=== PATIENT | male | born 1980 | race Asian ===

== ENCOUNTER 2018-06-21 14:11 | Emergency (ER) | payer MEDICAID ==
[~2018-06-21] VITALS: Ht 182.9 cm; Wt 114.3 kg
--- NOTE | 2018-06-21 14:16 | NUR ---
ESTELA FROM THE STREETS C/O N/V S/P SMOKING MARIJUANA, TO ER BED 11, HOOKED TO MONITOR, AWAITING MD DAVIS
--- NOTE | 2018-06-21 14:16 | NUR ---
Desi smith in [facility] - 06/21/18 at 1432 by SHANEL ESTELA FROM THE STREETS C/O N/V S/P SMOKING MARIJUANA
--- NOTE | 2018-06-21 14:44 | NUR ---
DR HOU AT BEDSIDE
[2018-06-21] MEDS ORDERED: IV NS 0.9% 1,000 ML BAG IV ONE ×2 (15:00→17:00)
[2018-06-21] MEDS ORDERED: ONDANSETRON HCL/PF - ER 4 MG/2 ML VIAL IV ONE (15:00)
[2018-06-21] MEDS ORDERED: ONDANSETRON HCL/PF 4 MG/2 ML VIAL ONE (15:08)
[2018-06-21 15:47] LABS: BASOPHILS % (AUTO) 0.1 % (0.0-2.0); EOSINOPHILS % (AUTO) 0.3 % (0.0-6.0); HEMATOCRIT 46 % (39-51); HEMOGLOBIN 15.1 g/dL (13.5-17.5); LYMPHOCYTES # (AUTO) 1.7 /CMM (0.8-4.8); LYMPHOCYTES % (AUTO) 7.8 % (20.0-44.0); MEAN CORPUSCULAR HGB CONC 33 g/dl (31.0-36.0); MEAN CORPUSCULAR VOLUME 80 fL (80-96); MONOCYTES # (AUTO) 1.2 /CMM (0.1-1.30); MONOCYTES % (AUTO) 5.8 % (2.0-12.0); NEUTROPHILS # (AUTO) 18.3 /CMM (1.8-8.9); PLATELET COUNT (AUTO) 262 /CMM (150-450); RED BLOOD CELL COUNT(AUTO) 5.72 MIL/uL (4.5-6.0); WHITE BLOOD COUNT (AUTO) 21.2 K/uL (4.3-11.0)
[2018-06-21 15:56] LABS: CALCIUM, SERUM 8.8 mg/dL (8.5-10.1); CREATININE 1.3 mg/dL (0.6-1.3); POTASSIUM 4.1 mmol/L (3.5-5.1)
[2018-06-21 16:02] LABS: ALBUMIN 3.8 g/dL (3.4-5.0); BILIRUBIN,TOTAL 0.2 mg/dL (0.2-1.0); TOTAL PROTEIN, SERUM 7.3 g/dL (6.4-8.2)
[2018-06-21 18:15] LABS: APPEARANCE,URINE Clear (CLEAR); BILIRUBIN,URINE Negative (NEGATIVE); BLOOD, URINE Negative Ery/uL (NEGATIVE); COLOR,URINE Yellow (YELLOW); KETONES,URINE Negative (NEGATIVE); LEUKOCYTE ESTERASE ,URINE Negative (NEGATIVE); NITRITE, URINE Negative (NEGATIVE); PH,URINE 7.5 (5.0-8.0); PROTEIN,URINE Negative (NEGATIVE); UGLUCOSE Negative (NEGATIVE); UROBILINOGEN,URINE 0.2 EU/dL (0.2)
[2018-06-21 18:55] VITALS: BP 126/68
--- NOTE | 2018-06-21 19:10 | NUR ---
PT LEFT THE HOSPITAL AGAINST THE ADVICE OF DR. HOU. EXPLAINED RISKS AND CONSEQUENCES OF LEAVING THE HOSPITAL BUT STILL DECIDED TO LEAVE. PT AMBULATORY, A&0x4, IN STABLE CONDITION, STABLE VITAL SIGNS. ACCOMPANIED BY [facility] GOING OUT OF THE HOSPITAL.
== END 2018-06-21 19:41 | disposition left against medical advice (07) ==
LOC: ER 14:18
DX: E87.2 Acidosis (principal); D72.829 Elevated white blood cell count, unspecified; F12.90 Cannabis use, unspecified, uncomplicated; R11.2 Nausea with vomiting, unspecified; F31.9 Bipolar disorder, unspecified
CPT/HCPCS: 36415; 71045-TC; 80048-TC; 80076-TC; 80305; 81000-TC; 83605-TC; 83690-TC; 85025-TC; 87040-TC; G0480; J2405; J7030